=== PATIENT | female | born 2000 | race Caucasian/White ===

== ENCOUNTER 2022-07-15 05:52 | Emergency (ER) | payer OTHER ==
[2022-07-15] MEDS ORDERED: Ondansetron PF 4 MG/2 ML Vial ONE (06:31)
[2022-07-15 06:33] LABS: #Basophils 0.1 10x3/uL (0.0-0.2); #Eosinphils 0.3 10x3/uL (0.0-0.5); #Monocytes 0.6 10x3/uL (0.0-1.1); #Neutrophils 2.3 10x3/uL (1.5-8.4); %Eosinophils 5.6 % (0.0-6.0); %Lymphocytes 37.1 % (18.0-47.0); %Monocytes 12.2 % (0.0-10.0); %Neutrophils 43.9 % (40.0-75.0); Hemoglobin 13.9 g/dL (12.0-15.5); Mean Corpuscular HGB CONC 35.2 g/dL (32.0-36.0); Mean Corpuscular Hemoglobin 32.2 pg (27.0-33.0); Mean Corpuscular Volume 91.4 fl (81.6-98.3); Mean Platelet Volume 12.1 fl (7.4-10.4); Platelet Count 184 10x3/uL (150-450); Red Blood Cell (RBC) Count 4.32 10x6/uL (3.90-5.03); White Blood Cell (WBC) Count 5.2 10x3/uL (3.5-10.5)
[2022-07-15 06:48] LABS: BHCG - Serum Negative (NEGATIVE); Pregs Control Background? CLEAR/WHITE (CLR/WHITE); Pregs Control Bar Appear? YES (CONTROL BAR)
[2022-07-15 06:49] LABS: ALT (SGPT) 11 U/L (8-55); AST (SGOT) 20 U/L (5-30); Albumin 4.4 g/dL (3.5-5.0); Alkaline Phosphatase 55 U/L (40-100); Anion Gap 13 mmol/L (10-20); BUN (Urea Nitrogen) 8 mg/dL (8.4-21.0); Bilirubin, Total 0.5 mg/dL (0.2-1.2); Calc. Creatinine Clearance 0 mL/min (70-130); Calcium 9.1 mg/dL (7.8-10.44); Carbon Dioxide 23 mmol/L (22-29); Chloride 109 mmol/L (98-107); Estimated GFR 112; Globulin 2.7 g/dL (2.4-3.5); Glucose 82 mg/dL (70-105); Lipase 47 U/L (8-78); Potassium 3.6 mmol/L (3.5-5.1); Protein, Total 7.1 g/dL (6.0-8.3); Sodium 141 mmol/L (136-145)
[2022-07-15] MEDS ORDERED: Iopamidol 300 61% 100 ML VIAL FS ONE (13:29)
== END 2022-07-15 08:20 | disposition home or self-care (01) ==
LOC: CSHERS 05:52
DX: R11.2 Nausea with vomiting, unspecified (principal); R10.84 Generalized abdominal pain
CPT/HCPCS: 74177; 80053; 83690; 84703; 85025; 96361; 96374; J2405; Q9967